=== PATIENT | male | born 1970 | race African-American/Black ===

== ENCOUNTER → 2019-05-29 | Outpatient (CLI) | payer OTHER ==
[~2019-05-29] MED LIST: CHOLESTEROL MA1 EACH PO; LIPITOR20 MG PO; LISINOPRIL10 MG PO; NABUMETONE 500500 M1 PO; NOHOMEMEDICATIONS; NORCO 5-325 TA1 EACH PO; VALIUM5 MG PO
== END ==
LOC: MRI 10:44
DX: M51.16 Intervertebral disc disorders with radiculopathy, lumbar region (principal); M48.062 Spinal stenosis, lumbar region with neurogenic claudication; M12.88 Other specific arthropathies, not elsewhere classified, other specified site